=== PATIENT | male | born 1965 | race American Indian/Alaskan Native ===

== ENCOUNTER 2019-09-18 16:36 | Emergency (ER) | payer MEDICAID ==
[2019-09-18 17:34] LABS: Basophils % (Auto) 0.4 % (0.0-1.8); Eosinophils % (Auto) 1.2 % (0.0-4.3); Hematocrit 43.4 % (35.5-45.6); Hemoglobin 14.8 gm/dl (11.8-15.2); Lymphocytes # (Auto) 1.3 K/mm3 (1.2-5.4); Lymphocytes % (Auto) 39.1 % (13.4-35.0); Mean Corpuscular HGB Conc 34 % (32-34); Mean Corpuscular Volume 103 fl (84-94); Monocytes # (Auto) 0.4 K/mm3 (0.0-0.8); Monocytes % (Auto) 13.6 % (0.0-7.3); Platelet Count 104 K/mm3 (140-440); Red Cell Distribution Width 12.5 % (13.2-15.2)
[2019-09-18 17:52] LABS: BUN/Creatinine Ratio 8; Blood Urea Nitrogen 8 mg/dL (9-20); Calcium 9.2 mg/dL (8.4-10.2); Hemolysis Index 11
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
[2019-09-18] MEDS ORDERED: SODIUM CHLORIDE 0.9% 1000 ML 1,000 ML IV ONE ×2 (18:50→21:06)
[2019-09-18 22:10] VITALS: BP 164/79
== END 2019-09-18 23:54 | disposition home or self-care (01) ==
LOC: ED 16:36
DX: R56.9 Unspecified convulsions (principal); R33.9 Retention of urine, unspecified; R42 Dizziness and giddiness; I10 Essential (primary) hypertension; E03.9 Hypothyroidism, unspecified; Z79.899 Other long term (current) drug therapy
CPT/HCPCS: 36415; 51702; 80048; 80156; 80164; 85025; 96360; 96361; 99284; J7030

== ENCOUNTER 2019-09-24 11:35 | Emergency (ER) | payer MEDICAID ==
[2019-09-24] MEDS ORDERED: levETIRAcetam 1000 MG/NS 0.75% 1,000 MG/100 ML BAG IV ONE (14:05)
[2019-09-24 14:40] LABS: Basophils # (Auto) 0.1 K/mm3 (0.0-0.1); Basophils % (Auto) 1.4 % (0.0-1.8); Eosinophils % (Auto) 0.3 % (0.0-4.3); Hematocrit 44.6 % (35.5-45.6); Lymphocytes # (Auto) 1.8 K/mm3 (1.2-5.4); Lymphocytes % (Auto) 44.3 % (13.4-35.0); Mean Corpuscular HGB Conc 34 % (32-34); Mean Corpuscular Volume 103 fl (84-94); Monocytes # (Auto) 0.4 K/mm3 (0.0-0.8); Monocytes % (Auto) 10.5 % (0.0-7.3); Red Blood Count 4.35 M/mm3 (3.65-5.03); Red Cell Distribution Width 12.6 % (13.2-15.2)
[2019-09-24 14:46] LABS: Platelet Count 116 K/mm3 (140-440)
--- NOTE | 2019-09-24 14:47 | Emergency Department Report ---
ED General Adult HPI - General Chief complaint: Seizure Stated complaint: CONVULSIONS Time Seen by Provider: 09/24/19 14:05 Source: EMS Mode of arrival: Stretcher Limitations: No Limitations - History of Present Illness Initial comments: This is a 54-year-old man with a history of traumatic brain injury and seizures. This is the second time in one week. He has had a seizure. He was found to have a low Tegretol level and a therapeutic valproic acid level last week. His medications were not altered. The family states that he is taking his current medications. They do not report injury. The patient is now coherent enough to answer questions. He is bit lethargic. He does not complain of any pain or injury either. He's had no intercurrent fever chills or headache. Cardiac the family and the patient is able to care for his own ADLs. He is fully ambulatory. -: Gradual Severity scale (0 -10): 0 Associated Symptoms: denies other symptoms - Related Data Home Medications Medication Instructions Recorded Confirmed Last Taken Amlodipine Besylate/Benazepril 1 each PO DAILY 09/18/19 09/18/19 Unknown [Amlodipine-Benazepril 10-40 mg] Escitalopram [Lexapro] 20 mg PO DAILY 09/18/19 09/18/19 Unknown Trihexyphenidyl (Nf) [Artane (Nf)] 5 mg PO BID 09/18/19 09/18/19 Unknown Valproic Acid [DepaKENE] 500 mg PO DAILY 09/18/19 09/18/19 Unknown carBAMazepine [Tegretol] 600 mg PO BID 09/18/19 09/18/19 Unknown cloNIDine [Catapres] 0.2 mg PO DAILY 09/18/19 09/18/19 Unknown Previous Rx's Medication Instructions Recorded Last Taken Type levETIRAcetam [Keppra TAB] 500 mg PO BID #60 tablet 09/24/19 Unknown Rx Allergies Allergy/AdvReac Type Severity Reaction Status Date / Time No Known Allergies Allergy Unverified 09/18/19 16:54 ED Review of Systems ROS: Stated complaint: CONVULSIONS Other details as noted in HPI Constitutional: denies: chills, fever Eyes: denies: eye pain, eye discharge, vision change ENT: denies: ear pain, throat pain Respiratory: denies: cough, shortness of breath, wheezing Cardiovascular: denies: chest pain, palpitations Endocrine: no symptoms reported Gastrointestinal: denies: abdominal pain, nausea, diarrhea Genitourinary: denies: urgency, dysuria Musculoskeletal: denies: back pain, joint swelling, arthralgia Skin: denies: rash, lesions Neurological: denies: headache, weakness, paresthesias Psychiatric: denies: anxiety, depression Hematological/Lymphatic: denies: easy bleeding, easy bruising ED Past Medical Hx - Past Medical History Hx Hypertension: Yes Hx Seizures: Yes Additional medical history: TBI, hypothyroid, tremor - Social History Smoking Status: Former Smoker Substance Use Type: None - Medications Home Medications: Home Medications Medication Instructions Recorded Confirmed Last Taken Type Amlodipine Besylate/Benazepril 1 each PO DAILY 09/18/19 09/18/19 Unknown History [Amlodipine-Benazepril 10-40 mg] Escitalopram [Lexapro] 20 mg PO DAILY 09/18/19 09/18/19 Unknown History Trihexyphenidyl (Nf) [Artane (Nf)] 5 mg PO BID 09/18/19 09/18/19 Unknown History Valproic Acid [DepaKENE] 500 mg PO DAILY 09/18/19 09/18/19 Unknown History carBAMazepine [Tegretol] 600 mg PO BID 09/18/19 09/18/19 Unknown History cloNIDine [Catapres] 0.2 mg PO DAILY 09/18/19 09/18/19 Unknown History levETIRAcetam [Keppra TAB] 500 mg PO BID #60 tablet 09/24/19 Unknown Rx ED Physical Exam - General Limitations: Altered Mental Status (somewhat lethargic) General appearance: alert, in no apparent distress, other (tremor noted which is the patient's baseline) - Head Head exam: Present: atraumatic, normocephalic - Eye Eye exam: Present: normal appearance, PERRL, EOMI. Absent: scleral icterus - ENT ENT exam: Present: mucous membranes moist - Neck Neck exam: Present: normal inspection. Absent: tenderness, meningismus - Respiratory Respiratory exam: Present: normal lung sounds bilaterally. Absent: respiratory distress - Cardiovascular Cardiovascular Exam: Present: regular rate, normal rhythm. Absent: systolic murmur, diastolic murmur, rubs, gallop - GI/Abdominal GI/Abdominal exam: Present: soft, normal bowel sounds. Absent: distended, tenderness, guarding, rebound, rigid - Rectal Rectal exam: Present: deferred - Extremities Exam Extremities exam: Present: normal inspection - Back Exam Back exam: Present: normal inspection. Absent: muscle spasm, paraspinal tenderness, vertebral tenderness - Neurological Exam Neurological exam: Present: alert, oriented X3, CN II-XII intact. Absent: motor sensory deficit - Psychiatric Psychiatric exam: Present: normal mood, flat affect - Skin Skin exam: Present: warm, dry, intact, normal color. Absent: rash ED Course Vital Signs 09/24/19 09/24/19 09/24/19 12:04 12:30 13:00 Temperature 98.5 F Pulse Rate 75 73 71 Respiratory 13 14 17 Rate Blood Pressure 151/90 140/86 147/87 Blood Pressure [Right] O2 Sat by Pulse 96 96 Oximetry 09/24/19 09/24/19 13:30 13:52 Temperature 98.1 F Pulse Rate 75 69 Respiratory 15 11 L Rate Blood Pressure 141/84 Blood Pressure 131/84 [Right] O2 Sat by Pulse 96 96 Oximetry - Reevaluation(s) Reevaluation #1: Mental status is improving. The patient was given a gram of Keppra. 09/24/19 14:47 ED Medical Decision Making - Lab Data Result diagrams: 09/24/19 14:12 09/24/19 14:12 Laboratory Results - last 24 hr 09/24/19 14:12 WBC 4.0 L RBC 4.35 Hgb 15.0 Hct 44.6 MCV 103 H MCH 34 H MCHC 34 RDW 12.6 L Plt Count 116 L Lymph % (Auto) 44.3 H [place] % (Auto) 10.5 H Eos % (Auto) 0.3 Baso % (Auto) 1.4 Lymph # 1.8 [place] # 0.4 Eos # 0.0 Baso # 0.1 Seg Neutrophils % 43.5 Seg Neutrophils # 1.8 Laboratory Results - last 24 hr 09/24/19 09/24/19 14:12 14:12 WBC 4.0 L RBC 4.35 Hgb 15.0 Hct 44.6 MCV 103 H MCH 34 H MCHC 34 RDW 12.6 L Plt Count 116 L Lymph % (Auto) 44.3 H [place] % (Auto) 10.5 H Eos % (Auto) 0.3 Baso % (Auto) 1.4 Lymph # 1.8 [place] # 0.4 Eos # 0.0 Baso # 0.1 Seg Neutrophils % 43.5 Seg Neutrophils # 1.8 PT 14.4 INR 1.13 APTT 25.8 Critical care attestation.: If time is entered above; I have spent that time in minutes in the direct care of this critically ill patient, excluding procedure time. ED Disposition Clinical Impression: Breakthrough seizure, Seizure disorder Disposition: TO HOME OR SELFCARE Is pt being admited?: No Does the pt Need Aspirin: No Condition: Stable Instructions: Epilepsy (ED), Recurrent Seizures Adult (ED) Additional Instructions: Follow-up with your neurologist. Continue your current medications. Additional Rx Keppra. Return as needed any acute change or further problems. Prescriptions: levETIRAcetam [Keppra TAB] 500 mg PO BID #60 tablet Referrals: PRIMARY CARE, [Primary Care Provider] - 3-5 Days usual, neurologist [Other] - 3-5 Days [facility] [Provider Group] - 2-3 Days Time of Disposition: 14:59
[2019-09-24 14:52] LABS: INR 1.13 (0.87-1.13); Partial Thromboplastin Time 25.8 Sec. (24.2-36.6)
[2019-09-24 15:02] LABS: Alanine Aminotransferase 36 units/L (7-56); BUN/Creatinine Ratio 9; Bilirubin,Direct 0.3 mg/dL (0-0.2); Blood Urea Nitrogen 9 mg/dL (9-20); Calcium 9.2 mg/dL (8.4-10.2); Hemolysis Index 10
[2019-09-24 18:00] VITALS: BP 127/82
== END 2019-09-24 17:35 | disposition home or self-care (01) ==
LOC: ED 11:35
DX: G40.802 Other epilepsy, not intractable, without status epilepticus (principal); I10 Essential (primary) hypertension; E03.9 Hypothyroidism, unspecified; Z87.891 Personal history of nicotine dependence; Z79.899 Other long term (current) drug therapy
CPT/HCPCS: 36415; 80048; 80076; 83735; 85025; 85610; 85730; 96374; 99284; J1953

== ENCOUNTER 2019-12-14 16:32 | Emergency (ER) | payer MEDICAID ==
[2019-12-14] MEDS ORDERED: SODIUM CHLORIDE 0.9% 1000 ML 1,000 ML IV ONE (18:15)
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
[2019-12-14] MEDS ORDERED: levETIRAcetam 1000 MG/NS 0.75% 1,000 MG/100 ML BAG IV ONE ×2 (18:31→18:32)
[2019-12-14 18:49] LABS: Bilirubin,Urine NEG (Negative); Blood,Urine SM (Negative); Color,Urine Yellow (Yellow); Protein,Urine <15 mg/dL mg/dL (Negative); RBC,Urine < 1.0 /HPF (0.0-6.0); Urobilinogen,Urine < 2.0 mg/dL (<2.0)
[2019-12-14 18:54] LABS: Basophils % (Auto) 0.4 % (0.0-1.8); Eosinophils % (Auto) 0.3 % (0.0-4.3); Hematocrit 35.6 % (35.5-45.6); Lymphocytes # (Auto) 1.4 K/mm3 (1.2-5.4); Lymphocytes % (Auto) 32.4 % (13.4-35.0); Mean Corpuscular HGB Conc 34 % (32-34); Mean Corpuscular Volume 106 fl (84-94); Monocytes # (Auto) 0.4 K/mm3 (0.0-0.8); Red Blood Count 3.37 M/mm3 (3.65-5.03); Red Cell Distribution Width 15.7 % (13.2-15.2)
[2019-12-14 19:06] LABS: BUN/Creatinine Ratio 11; Blood Urea Nitrogen 13 mg/dL (9-20); Hemolysis Index 6
[2019-12-14 19:10] LABS: Alanine Aminotransferase 10 units/L (7-56); Albumin 3.6 g/dL (3.9-5)
[2019-12-14 19:20] LABS: Bilirubin,Direct < 0.2 mg/dL (0-0.2)
[2019-12-14 20:13] LABS: Platelet Count 128 K/mm3 (140-440)
--- NOTE | 2019-12-14 20:56 | Cat Scan Report ---
CT head/brain wo con INDICATION / CLINICAL INFORMATION: 54 years Male; seziure,fall. TECHNIQUE: Routine CT head without contrast. All CT scans at this location are performed using CT dos e reduction for ALARA by means of automated exposure control. COMPARISON: None. FINDINGS: BRAIN / INTRACRANIAL CONTENTS: Craniectomy site seen in the right frontoparietal temporal region. The re is significant encephalomalacia in the right cerebral hemisphere with most prevalent findings seen in the right temporal lobe. Please clinically correlate. Otherwise, no acute hemorrhage, mass effect, midline shift, hydrocephalus, or acute, large territori al infarct. Mild to moderate cerebral and cerebellar atrophy. Separate from the encephalomalacia, there are mild to moderate areas of decreased attenuation in the white matter of the cerebral hemispheres, as well as the gangliocapsular regions. These are nonspecif ic findings and may be related to microangiopathy (hypertension, diabetes, atherosclerosis), given th e patient's age. It might be difficult to evaluate for small areas of ischemia without diffusion imag ing by MRI. CRANIOCERVICAL JUNCTION: No significant abnormality. ORBITS: No significant abnormality of visualized orbits. SINUSES / MASTOIDS: Mild to moderate mucosal thickening seen in the ethmoids. Mucosal thickening is a lso seen in the left sphenoid sinus. Mild to moderate mucosal thickening seen in the right mastoid re gion. There is also mucosal thickening with mucous retention cyst/polyp seen in the left maxillary an trum. Small air-fluid level noted as well. ADDITIONAL FINDINGS: No significant atherosclerotic disease appreciated. IMPRESSION: 1. No focal mass, hemorrhage, hydrocephalus, or acute, large territorial infarct. 2. Postoperative changes, as described above. Signer Name: Juwan Kessler MD, III Signed: 12/14/2019 8:52 PM Workstation Name: [id number]
[2019-12-16 02:41] VITALS: BP 176/80
== END 2019-12-16 11:15 | disposition home or self-care (01) ==
LOC: ED 16:32
DX: S06.9X0A Unspecified intracranial injury without loss of consciousness, initial encounter (principal); R56.9 Unspecified convulsions; I10 Essential (primary) hypertension; E03.9 Hypothyroidism, unspecified; Z98.890 Other specified postprocedural states; X58.XXXA Exposure to other specified factors, initial encounter; Y93.89 Activity, other specified; Y92.89 Other specified places as the place of occurrence of the external cause; Y99.8 Other external cause status
CPT/HCPCS: 36415; 70450; 80048; 80076; 80164; 81001; 85025; 96365; 99285; J1953; J7030